=== PATIENT | female | born 1960 | race Caucasian/White ===

== ENCOUNTER 2019-07-27 02:15 | Outpatient (CLI) | payer SELFPAY ==
[2019-07-27 08:39] LABS: HEMOGLOBIN A1C 5.3 % (4.5-6.2)
== END 2019-07-27 23:59 | disposition home or self-care (01) ==
LOC: HW HEART 02:15
DX: Z13.6 Encounter for screening for cardiovascular disorders (principal)
CPT/HCPCS: 36415

== ENCOUNTER 2019-09-30 09:18 | Outpatient (CLI) | payer OTHER ==
[2019-09-30 10:05] LABS: ALANINE AMINOTRANSFERASE 30 U/L (12-78); ALBUMIN 4.2 G/DL (3.4-5.0); ALKALINE PHOSPHATASE 56 IU/L (46-116); ANION GAP 5 (8-16); ASPARTATE AMINO TRANSFERASE 23 U/L (10-37); BILIRUBIN,TOTAL 0.4 MG/DL (0.1-1.0); BLOOD UREA NITROGEN 14 MG/DL (7-18); BUN/CREATININE RATIO 15.6 (6.6-38.0); CALCIUM 9.3 MG/DL (8.5-10.1); CHLORIDE 103 MMOL/L (99-107); GLUCOSE 95 MG/DL (70-104); POTASSIUM 4.2 MMOL/L (3.5-5.1); SODIUM 139 MMOL/L (135-145); TOTAL CARBON DIOXIDE 31.2 MMOL/L (24-32); TOTAL PROTEIN 8.4 G/DL (6.4-8.2); eGFR 64 ML/MIN
== END 2019-09-30 23:59 | disposition home or self-care (01) ==
LOC: LAB 09:18
PROVIDERS: ATTEND Nurse Practitioner Family
DX: E03.9 Hypothyroidism, unspecified (principal); Z76.89 Persons encountering health services in other specified circumstances
CPT/HCPCS: 36415; 80053; 84439; 84443

== ENCOUNTER 2019-10-18 06:31 | Day surgery (SDC) | payer OTHER ==
[~2019-10-18] VITALS: Ht 156.2 cm; Wt 81.8 kg
[2019-10-18 07:15] VITALS: BP 142/97
[2019-10-18] MEDS ORDERED: ESCI10TA PO (07:18)
[2019-10-18] MEDS ORDERED: fentaNYL/PF 50MCG/1 ML 2ML syringe ONE (07:21)
[2019-10-18] MEDS ORDERED: MIDAZolam 5mg/5ml vial ONE (07:22)
[2019-10-18] MEDS ORDERED: LIDOcaine Viscous 15ml cup ONE ×2 (07:22→08:01)
[2019-10-18] MEDS ORDERED: DOXY20TA3 PO (07:25)
[2019-10-18] MEDS ORDERED: LEVO100T9 PO (07:26)
[2019-10-18] MEDS ORDERED: METF-436 PO (07:26)
[2019-10-18] MEDS ORDERED: LIOT5TAB10 PO (07:27)
[2019-10-18] MEDS ORDERED: OXYB10TA4 PO (07:28)
[2019-10-18] MEDS ORDERED: FENO200C PO (07:30)
[2019-10-18] MEDS ORDERED: OMEG-79 PO (07:31)
[2019-10-18] MEDS ORDERED: CETI-90 PO (07:33)
[2019-10-18] MEDS ORDERED: CHOL400T57 PO (07:33)
[2019-10-18 08:19] VITALS: BP 133/85
[2019-10-18 08:29] VITALS: BP 117/73
[2019-10-18 08:39] VITALS: BP 137/83
[2019-10-18 08:49] VITALS: BP 132/91
== END 2019-10-18 09:00 | disposition home or self-care (01) ==
LOC: GI LAB 06:31
PROVIDERS: ATTEND Internal Medicine Gastroenterology
DX: K92.0 Hematemesis (principal); D12.6 Benign neoplasm of colon, unspecified; K29.50 Unspecified chronic gastritis without bleeding; K44.9 Diaphragmatic hernia without obstruction or gangrene; K31.7 Polyp of stomach and duodenum
CPT/HCPCS: 43239; 45380; 99152; 99153; J2250; J3010; J7040; A4620